=== PATIENT | female | born 1960 | race Two or more races ===

== ENCOUNTER 2023-05-31 04:30 | Day surgery (SDC) | payer OTHER ==
[~2023-05-31] VITALS: Ht 154.9 cm; Wt 73.0 kg
[~2023-05-31 04:30] MED LIST: COZAAR100 MG PO; HYDROCHLOROTHIA25 MG PO; LIPITOR40 M1 PO; SYNTHROID125 MCG PO; TOPROL XL50 M1 PO
== END 2023-05-31 12:30 | disposition home or self-care (01) ==
LOC: CIR.AMB 04:30
PROVIDERS: ATTEND Specialist
DX: K80.10 Calculus of gallbladder with chronic cholecystitis without obstruction (principal); Z20.822 Contact with and (suspected) exposure to COVID-19; I10 Essential (primary) hypertension; Z87.891 Personal history of nicotine dependence; E03.9 Hypothyroidism, unspecified